=== PATIENT | female | born 1930 | race Caucasian/White ===

== ENCOUNTER 2018-10-02 10:05 | Day surgery (SDC) | payer MEDICARE ==
[~2018-10-02] VITALS: Ht 162.6 cm; Wt 70.9 kg
[2018-10-02] MEDS: NS 1,000 ML IV ONE (07:00)
[~2018-10-02 10:05] MED LIST: ASPI81TA26 PO; ATOR1TAB19 PO; BETA2500 PO; BIOT1CAP2 PO; CALC500C16 PO; COQ-100C5 PO; FISH1000 PO; GNP1000T11 PO; GRAP50CA PO; HM P99TA PO; HYALCAP PO; LEVO100T5 PO; MAGN250T7 PO; PINE BARK EXTRACT PO; TAGA200T3 PO; TURM500C PO; VITA-157 PO; VITA500T PO; VITAD1000T PO; [UNRECOGNIZED DRUG - CODE] PO; [UNRECOGNIZED DRUG - CODE] PO; [UNRECOGNIZED DRUG - OTHER]
[2018-10-02] MEDS ORDERED: PROPOFOL 200 MG/20 ML VIAL As Ordered ONE ×2 (11:02→11:39)
[2018-10-02] MEDS ORDERED: LIDOCAINE 2% INJ 100 MG/5 ML SDV (FOR ANES.) As Ordered ONE (11:02)
--- NOTE | 2018-10-02 11:11 | ROOR ---
Patient Name: Cindy Prado Procedure Date: 10/02/2018 10:55 AM Date of : 1930 Age: 88 Room: [facility] Gender: Female Note Status: Finalized Procedure: Upper Endoscopy + Biopsies Indications: Heartburn, Exclusion of Cid's esophagus Providers: Bello Lima MD Referring MD: Tristin Gong MD Requesting Provider: Medicines: Monitored Anesthesia Care Complications: No immediate complications. Procedure: Pre-Anesthesia Assessment: - The heart rate, respiratory rate, oxygen saturations, blood pressure, adequacy of pulmonary ventilation, and response to care were monitored throughout the procedure. The Endoscope was introduced through the mouth, and advanced to the second part of duodenum. The upper GI endoscopy was accomplished without difficulty. The patient tolerated the procedure well. Findings: The Z-line was irregular and was found 40 cm from the incisors. Multiple biopsies were obtained with cold forceps for evaluation to rule out Cid's Esophagus randomly at the gastroesophageal junction. A medium-sized hiatal hernia was present. No other significant abnormalities were identified in a careful examination of the stomach. The exam of the duodenum was otherwise normal. Impression: - Z-line irregular, 40 cm from the incisors. - Medium-sized hiatal hernia. - Multiple biopsies were obtained at the gastroesophageal junction. - The examination was otherwise normal. Recommendation: - Patient has a contact number available for emergencies. The signs and symptoms of potential delayed complications were discussed with the patient. Return to normal activities tomorrow. Written discharge instructions were provided to the patient. - High fiber diet. - Discharge patient to home. - Follow an antireflux regimen. - Continue present medications. - Await pathology results. - Telephone GI clinic for pathology results in 1 week. - Check Portal Online for Path Results.([email or web address] - The findings and recommendations were discussed with the patient's family. Bello Lima MD Bello Lima MD 10/02/2018 11:11:08 AM Electronically signed by Bello Lima MD Number of Addenda: 0 Note Initiated On: 10/02/2018 10:55 AM Estimated Blood Loss: Estimated blood loss: none.
--- NOTE | 2018-10-02 11:35 | ROOR ---
Patient Name: Cindy Prado Procedure Date: 10/02/2018 10:56 AM Date of : 1930 Age: 88 Room: [facility] Gender: Female Note Status: Finalized Procedure: Total Colonoscopy to Cecum Indications: Change in bowel habits Providers: Bello Lima MD Referring MD: Tristin Gong MD Requesting Provider: Medicines: Monitored Anesthesia Care Complications: No immediate complications. Procedure: Pre-Anesthesia Assessment: - The heart rate, respiratory rate, oxygen saturations, blood pressure, adequacy of pulmonary ventilation, and response to care were monitored throughout the procedure. The Colonoscope was introduced through the anus and advanced to the cecum, identified by appendiceal orifice and ileocecal valve. The colonoscopy was performed without difficulty. The patient tolerated the procedure well. The quality of the bowel preparation was excellent. Findings: The perianal and digital rectal examinations were normal. Non-bleeding internal hemorrhoids were found during retroflexion. The hemorrhoids were small and Grade I (internal hemorrhoids that do not prolapse). Multiple small and large-mouthed diverticula were found in the recto-sigmoid colon, sigmoid colon and descending colon. The exam was otherwise without abnormality on direct and retroflexion views. Impression: - Non-bleeding internal hemorrhoids. - Diverticulosis in the recto-sigmoid colon, in the sigmoid colon and in the descending colon. - The examination was otherwise normal on direct and retroflexion views. - No specimens collected. - The exam was otherwise normal to the cecum. Recommendation: - Patient has a contact number available for emergencies. The signs and symptoms of potential delayed complications were discussed with the patient. Return to normal activities tomorrow. Written discharge instructions were provided to the patient. - High fiber diet. - Discharge patient to home. - Continue present medications. - Repeat colonoscopy for symptoms only. - Return to referring physician. - The findings and recommendations were discussed with the patient's family. Bello Lima MD Bello Lima MD 10/02/2018 11:25:42 AM Electronically signed by Bello Lima MD Number of Addenda: 0 Note Initiated On: 10/02/2018 10:56 AM Estimated Blood Loss: Estimated blood loss: none.
[2018-10-02 11:55] VITALS: BP 124/69
== END 2018-10-02 12:15 | disposition home or self-care (01) ==
LOC: M OPP 10:05
PROVIDERS: ATTEND Internal Medicine Gastroenterology
DX: K64.0 First degree hemorrhoids (principal); K57.30 Diverticulosis of large intestine without perforation or abscess without bleeding; R19.4 Change in bowel habit; K22.8 Other specified diseases of esophagus; K44.9 Diaphragmatic hernia without obstruction or gangrene; R12 Heartburn; Z79.82 Long term (current) use of aspirin; Z79.899 Other long term (current) drug therapy; Z87.891 Personal history of nicotine dependence